=== PATIENT | female | born 1965 | race Caucasian/White ===

== ENCOUNTER 2020-10-27 23:36 | Inpatient (IN) | payer BC ==
[~2020-10-27] VITALS: Ht 160 cm; Wt 63.5 kg
[~2020-10-27 23:36] MED LIST: Acetaminophen PO; Amox Tr/Potassium Clavulanate PO; HYDR25TA4 PO; NORT10CA PO; PERCOCET; VALS320T2 PO
--- NOTE | 2020-10-28 00:13 | NUR ---
MD Hernandez in room to do MSE.
[2020-10-28] MEDS ORDERED: PIPERACILLIN SODIUM/TAZOBACTAM 3.375 G in IV DEXTROSE 5% 50 ML IV ONE (00:30)
[2020-10-28] MEDS ORDERED: HYDROMORPHONE HCL 2 MG TABLET PO ONE (00:30)
[2020-10-28] MEDS ORDERED: ONDANSETRON 4 MG/2 ML VIAL IV ONE (00:30)
[2020-10-28] MEDS ORDERED: IV NORMAL SALINE 1000 ML BAG IV ONE (00:30)
[2020-10-28] MEDS ORDERED: HYDROMORPHONE HCL 2 MG TABLET ONE (00:40)
[2020-10-28] MEDS ORDERED: ONDANSETRON 4 MG/2 ML VIAL ONE (00:41)
[2020-10-28] MEDS ORDERED: PIPERACILLIN/TAZOBACTAM/D5W 50 ML IV ONE (00:41)
[2020-10-28 00:50] LABS: CREATININE 1.2 mg/dL (0.6-1.3); POTASSIUM 3.8 mmol/L (3.5-5.1)
[2020-10-28 00:51] LABS: HEMATOCRIT 37.3 % (31.2-41.9); MEAN CORPUSCULAR VOLUME 94.5 fL (75.5-95.3); PLATELET COUNT (AUTO) 308 K/uL (179-408)
[2020-10-28 00:55] LABS: BILIRUBIN,DIRECT 0.2 mg/dL (0.0-0.2); BILIRUBIN,TOTAL 0.4 mg/dL (0.2-1.0)
[2020-10-28] MEDS ORDERED: CLONIDINE HCL 0.1 MG TABLET PO ONE (01:45)
--- NOTE | 2020-10-28 01:49 | NUR ---
Called [facility], Ilene paged.
[2020-10-28] MEDS ORDERED: TOPI50TA PO (01:54)
[2020-10-28] MEDS ORDERED: DEXL60CA3 PO (01:54)
[2020-10-28] MEDS ORDERED: olmesartan PO (01:54)
[2020-10-28] MEDS ORDERED: OXYC-133 PO (01:54)
[2020-10-28] MEDS ORDERED: GABA600T12 PO (01:54)
--- NOTE | 2020-10-28 01:54 | NUR ---
Called for a room, patient will be going to room 311 med-surg.
--- NOTE | 2020-10-28 01:56 | NUR ---
Connor called back and connected to MD David Castanon.
[2020-10-28] MEDS ORDERED: LABETALOL HCL 100 MG/20 ML VIAL IV PRN (02:00)
[2020-10-28] MEDS ORDERED: hydrALAZINE HCL 20 MG/1 ML VIAL IV PRN (02:00)
[2020-10-28] MEDS ORDERED: MORPHINE SULFATE 2 MG/1 ML DISP.SYRIN IV PRN (02:00)
[2020-10-28] MEDS ORDERED: CLONIDINE HCL 0.1 MG TABLET ONE (02:03)
--- NOTE | 2020-10-28 02:07 | NUR ---
Report given to CARLA Mace.
[2020-10-28] MEDS ORDERED: ACETAMINOPHEN 325 MG TABLET PO PRN (02:15)
[2020-10-28] MEDS ORDERED: HYDROCODONE/APAP 5-325MG TABLET PO PRN (02:15)
[2020-10-28] MEDS ORDERED: HYDROMORPHONE 1 MG/1 ML DISP.SYRIN IV PRN (02:15)
[2020-10-28] MEDS ORDERED: ONDANSETRON 4 MG/2 ML VIAL IV PRN (02:15)
--- NOTE | 2020-10-28 02:59 | NUR ---
Pt. admitted to [facility] med-surg, under care of Dr. Ryan. Belongs List completed
[2020-10-28 03:00] VITALS: BP 148/90
[2020-10-28] MEDS ORDERED: HYDROMORPHONE 1 MG/1 ML DISP.SYRIN IV ONE (04:30)
--- NOTE | 2020-10-28 04:34 | NUR ---
received a 55 yr old female from ER with an admitting diagnosis of intractable pain. Admitting diagnosis of perititis. Hx of migraines, kidney stones, UTI,gastric bypass, HTN. AAOx4 Needs attended. BP 148/90 HR 96 Resp 19 pulse ox 100% RA temp 99.1 Continent of bowel and bladder. Voiding well. Medicated with Dilaudid 1 mg IV for pain. Will monitor patient. Patient still having a lot of pain. Dr Noble aware. Dilaudid 1mg changed to 2mg instead q 3hrs PRN and for breakthrough Percocet 1 tab q4hrs PRN. All needs attended. No acute distress noted. Will monitor patient.
[2020-10-28] MEDS ORDERED: OXYCODONE/APAP 5-325 MG TABLET PO PRN ×2 (04:45→14:52)
[2020-10-28] MEDS ORDERED: HYDROMORPHONE 2 MG/1 ML DISP.SYRIN IV PRN (04:45)
[2020-10-28] MEDS ORDERED: PIPERACILLIN/TAZO 4.5 GM VIAL IV ONE (05:07)
[2020-10-28] MEDS ORDERED: PIPERACILLIN SODIUM/TAZOBACTAM 4.5 G in IV DEXTROSE 5% 50 ML IV SCH (06:00)
[2020-10-28] MEDS: PANTOPRAZOLE SODIUM 40 MG TABLET.DR PO SCH (06:28)
[2020-10-28] MEDS ORDERED: IOHEXOL 300MG/ML 100 ML INFUS..BTL ONE (07:24)
[2020-10-28] MEDS ORDERED: SWABABLE VALVE TRANSFER SET EA MC ONE (07:24)
[2020-10-28] MEDS ORDERED: IV NORMAL SALINE 250 ML IV ONE (07:25)
--- NOTE | 2020-10-28 07:45 | NUR ---
received change of shift report, patient awake laying in bed in no apparent distress. ao x4, able to make needs know. IV site to left A/C in place and patent. Ct of face scheduled for 0800, consent signed. patient requesting iv Dilaudid, patient stating she needs 4mg, because 2mg is not effective. Dr. Walker in unit and aware per Dr. Walker he will place the order.
--- NOTE | 2020-10-28 08:00 | NUR ---
patient taken for ct scan in no acute distress. v/s wnl.
--- NOTE | 2020-10-28 08:45 | NUR ---
patient returned from ct scan, v/s wnl. Am po meds administered and tolerated well.
[2020-10-28] MEDS: GABAPENTIN 300 MG CAPSULE PO SCH ×2 (09:44→20:58)
[2020-10-28] MEDS: NORTRIPTYLINE HCL 10 MG CAPSULE PO SCH (09:44)
[2020-10-28] MEDS: LOSARTAN POTASSIUM 50 MG TABLET PO SCH (09:44)
[2020-10-28] MEDS: HYDROMORPHONE 2 MG/1 ML DISP.SYRIN IV PRN ×3 (10:50→23:28)
[2020-10-28 11:47] VITALS: BP 124/85
[2020-10-28] MEDS: PIPERACILLIN SODIUM/TAZOBACTAM 3.375 G in IV DEXTROSE 5% 100 ML IV SCH ×2 (15:10→21:00)
[2020-10-28 15:24] VITALS: BP 136/82
--- NOTE | 2020-10-28 18:46 | NUR ---
pt resting in bed, pain meds given as ordered, all needs met this shift. will endorse to oncoming nurse.
[2020-10-28 20:00] VITALS: BP 125/76
[2020-10-29] MEDS: HYDROMORPHONE 2 MG/1 ML DISP.SYRIN IV PRN ×4 (03:43→20:07)
[2020-10-29 04:00] VITALS: BP 121/85
[2020-10-29] MEDS: PIPERACILLIN SODIUM/TAZOBACTAM 3.375 G in IV DEXTROSE 5% 100 ML IV SCH ×3 (05:47→22:07)
[2020-10-29] MEDS: PANTOPRAZOLE SODIUM 40 MG TABLET.DR PO SCH (06:14)
[2020-10-29 06:23] LABS: BILIRUBIN,TOTAL 0.4 mg/dL (0.2-1.0); CREATININE 1.1 mg/dL (0.6-1.3); PHOSPHOROUS 3.7 mg/dL (2.5-4.9); POTASSIUM 4.3 mmol/L (3.5-5.1); TOTAL PROTEIN, SERUM 6.6 g/dL (6.4-8.2)
[2020-10-29 06:24] LABS: HEMATOCRIT 35.3 % (31.2-41.9); MEAN CORPUSCULAR HEMOGLOBIN 32.1 uug (24.7-32.8); MEAN CORPUSCULAR VOLUME 94.8 fL (75.5-95.3); PLATELET COUNT (AUTO) 280 K/uL (179-408)
--- NOTE | 2020-10-29 06:41 | NUR ---
Patient slept intermittently .No acute distress noted. Ambulates to bathroom .Iv on right FA patent and intact. COntinue on ATB therapy , no a/r noted. Pain meds given as order.Call light with in reach.
--- NOTE | 2020-10-29 08:00 | NUR ---
PT IN BED, PT APPEARS TO BE ANXIOUS/WORRIED ABOUT PAIN MEDICATION AND POSSIBILITY OF BEING DC'D WELL LIFE STRESSORS AT HOME. , PT AMBULATORY, F AC 20G. BED LOW AND LOCKED, CALL LIGHT WITHIN REACH, WILL CONTINUE TO MONITOR.
[2020-10-29] MEDS: NORTRIPTYLINE HCL 10 MG CAPSULE PO SCH (09:08)
[2020-10-29] MEDS: GABAPENTIN 300 MG CAPSULE PO SCH ×2 (09:08→20:03)
[2020-10-29] MEDS: IBUPROFEN 800 MG TABLET PO SCH ×3 (09:29→22:07)
[2020-10-29] MEDS: LOSARTAN POTASSIUM 50 MG TABLET PO SCH (09:34)
[2020-10-29] MEDS ORDERED: IBUP-1955 PO (10:14)
[2020-10-29] MEDS ORDERED: HYDR4TAB4 PO (10:14)
[2020-10-29 11:07] VITALS: BP 141/100
--- NOTE | 2020-10-29 14:08 | NUR ---
PT PREFERRED PHARMACY CHANGED, PT TO STAY UNTIL DC TOMORROW MORNING 10/30/20. AGREEABLE
[2020-10-29 16:02] VITALS: BP 144/89
[2020-10-29 16:14] VITALS: BP 144/89
--- NOTE | 2020-10-29 19:00 | NUR ---
ALERT ORIENTED, ON PAIN MANAGEMENT, ON DILAUDID 2MG Q 3 HRS, PATIENT AWAKE, AMBULATE TO BATHROOM, CONT TO MONITOR.
[2020-10-29 20:27] VITALS: BP 142/86
[2020-10-30] MEDS: HYDROMORPHONE 2 MG/1 ML DISP.SYRIN IV PRN ×4 (00:15→09:14)
--- NOTE | 2020-10-30 03:41 | NUR ---
PATIENT AWAKE WATCHING THE CLOCK FOR THE NEXT DOSE OF PAIN MEDICATIONS, GIVEN PAIN MEDS ORDERED, CONT TO MONITOR.
[2020-10-30 04:21] VITALS: BP 132/90
[2020-10-30] MEDS: IBUPROFEN 800 MG TABLET PO SCH (05:43)
[2020-10-30] MEDS: PIPERACILLIN SODIUM/TAZOBACTAM 3.375 G in IV DEXTROSE 5% 100 ML IV SCH ×2 (05:43→13:23)
[2020-10-30] MEDS: PANTOPRAZOLE SODIUM 40 MG TABLET.DR PO SCH (06:08)
--- NOTE | 2020-10-30 07:30 | NUR ---
Patient is alert/oriented x4, reported pain at the start of the shift. No distress identified. Kept call light within reach.
[2020-10-30] MEDS ORDERED: HYDR4TAB4 PO (08:07)
[2020-10-30 09:07] VITALS: BP 150/95
[2020-10-30] MEDS: GABAPENTIN 300 MG CAPSULE PO SCH (09:11)
[2020-10-30] MEDS: NORTRIPTYLINE HCL 10 MG CAPSULE PO SCH (09:12)
[2020-10-30] MEDS: LOSARTAN POTASSIUM 50 MG TABLET PO SCH (09:12)
[2020-10-30 11:25] VITALS: BP 144/95
[2020-10-30] MEDS ORDERED: KETOROLAC TROMETHAMINE 30 MG INJ IVP ONE (12:30)
[2020-10-30 15:16] VITALS: BP 144/93
--- NOTE | 2020-10-30 16:00 | NUR ---
Discharge patient via wheelchair, accompanied by the . Left on a private care. Skin intact. Pain medication was effective. Denies pain during discharge. Belongings list signed. Patient is stable, no distress identified.
[2020-10-30] MEDS ORDERED: IBUPROFEN 800 MG TABLET PO SCH (22:00)
== END 2020-10-30 15:55 | disposition home or self-care (01) | DRG 154 ==
LOC: ER 23:41 → MEDSURG3 10-28 02:47
PROVIDERS: ADMIT Internal Medicine; ATTEND Internal Medicine
DX: K11.21 Acute sialoadenitis (principal); E43 Unspecified severe protein-calorie malnutrition; G62.9 Polyneuropathy, unspecified; E88.09 Other disorders of plasma-protein metabolism, not elsewhere classified; G43.909 Migraine, unspecified, not intractable, without status migrainosus; G50.0 Trigeminal neuralgia; G89.4 Chronic pain syndrome; I10 Essential (primary) hypertension; Z79.891 Long term (current) use of opiate analgesic; Z87.442 Personal history of urinary calculi; Z98.84 Bariatric surgery status; Z68.24 Body mass index [BMI] 24.0-24.9, adult; Z20.822 Contact with and (suspected) exposure to COVID-19; E89.2 Postprocedural hypoparathyroidism; K11.5 Sialolithiasis
CPT/HCPCS: 36415; 70030-TC; 70488; 84100; 85025; 85730; A4663; G0378; J1170; J1885; J2405; J2543; J3490; J7030; J7050; J7060; Q9967